=== PATIENT | male | born 1970 | race Caucasian/White ===

== ENCOUNTER 2022-04-12 18:56 | Emergency (ER) | payer OTHER, SELFPAY ==
[2022-04-12 19:00] VITALS: BP 169/98; PULSE 76; RESP 18; TEMP 36.8; O2SAT 98
--- NOTE | 2022-04-12 19:05 | ED.GENADUL_ITS ---
Discharge Plan Disposition Patient Disposition: HOME Condition: Improving Discharge Details Clinical Impression: Rash Primary Care Provider: [place],Local ED Provider: Sherri Abbott Home Meds and New Rx's Prescriptions: New prednisone 20 mg tablet See Rx Instructions .ROUTE .COMPLEX Qty: 18 0RF Rx Instructions: Take 3 tabs daily for 3 days, then 2 tabs daily for 3 days, then 1 tab daily for 3 days. cephalexin 500 mg capsule 500 mg PO QID 7 Days Qty: 28 0RF Discharge Instructions Instructions: Acute Rash (ED) Additional Instructions: Drink plenty of fluids and get plenty of rest. Alternate tylenol and motrin as needed and directed for pain. Keep the areas clean and dry. Cover with bandage if risk of injury or contamination. You are being sent home with a prescription for the steroid prednisone and the antibiotic Keflex to take as directed until finished. Follow-up with your primary care doctor in 1 week. Return to the emergency department with any worsening or new concerning symptoms . Discharge Data Discharge Date/Time-TO BE ENTERED AT DEPARTURE: 04/12/22 19:42 Discharge Physician: Sherri Abbott Medical Decision Making 51-year-old male presents with painful itchy rash to his bilateral upper extremities after a black fly bites of the past few weeks. Patient has patches of erythema, edema and vesicles with some areas of yellow crusting to his bilateral upper extremities. Appears consistent with poison debbie or poison oak but he denies any known exposure to this. He states he usually has a similar reaction to black fly bites. Discussed that the treatment for both would be oral steroids. As there is areas of yellow crusting with erythema, will also cover with antibiotics. He was given a dose of oral prednisone and Keflex here and given prescriptions for both. Advised him on the importance of proper wound care. Advised to follow up with the primary care doctor for re-evaluation. Usual and customary return precautions given prior to discharge. HPI General Mode of arrival: ambulatory . Date/Time Provider Initiated Documentation: 04/12/22 19:05 . Limitations to Documentation: no limitations . Information obtained by: patient . HPI Narrative: Patient is a 51-year-old male who presents with painful itchy rash to his bilateral upper extremities after recent black fly bites patient states his first last fight bite was in his right inner elbow a few weeks ago. He states he initially developed a red bump which is extremely itchy and then progressed to a yellow crust with surrounding redness and swelling. He states he was outside in the sun fishing and sustained a black fly bite to his right wrist and then developed an area of redness and swelling around it. He states since then he has received other botfly bites to his arms resulting in the same reaction. He denies any fever. He denies any known exposure to poison debbie or poison oak. He states he has been applying topical cream without relief. Related Data Home Medications Medication Instructions Recorded Confirmed cephalexin 500 mg capsule 500 mg PO QID 7 days #28 caps 04/12/22 prednisone 20 mg tablet See Rx Instructions .Route 04/12/22 .COMPLEX #18 tabs Previous Rx's Medication Instructions Recorded cephalexin 500 mg capsule 500 mg PO QID 7 days #28 caps 04/12/22 prednisone 20 mg tablet See Rx Instructions .Route 04/12/22 .COMPLEX #18 tabs General Stated Complaint: RashLesion GENIA: 4 Review of Systems All systems reviewed & are unremarkable except as noted in HPI and below Constitutional Constitutional: Denies chills, Denies excessive sweating, Denies fatigue, Denies fever(s), Denies weakness and Denies weight loss Eyes Eyes: Reports system reviewed and no additional complaints, except as documented and Denies blurry vision ENT Ears, Nose, Mouth, and Throat: Denies vertigo, Denies dizziness, Denies otalgia, Denies nasal congestion, Denies sore throat and Denies throat swelling Cardiovascular Cardiovascular: Denies chest pain, Denies syncope, Denies rapid heart rate and Denies dyspnea Respiratory Respiratory: Denies chest congestion, Denies cough, Denies pain on inspiration and Denies dyspnea Gastrointestinal Gastrointestinal: Denies abdominal pain, Denies diarrhea and Denies vomiting Genitourinary Genitourinary: Denies hematuria, Denies dysuria and Denies flank pain Musculoskeletal Musculoskeletal: Denies back pain and Denies joint swelling Integumentary/Breasts Skin/Breast: Reports lesions and Reports rash Neurologic Neurologic: Denies behavioral changes, Denies confusion, Denies vertigo, Denies dizziness, Denies syncope, Denies localized weakness and Denies weakness Psychiatric Psychiatric: Denies behavioral changes, Denies confusion and Denies depression Endocrine Endocrine: Denies excessive sweating and Denies fatigue Hematologic/Lymphatic Hematologic/Lymphatic: Denies easy bruising and Denies lymphadenopathy Allergic/Immunologic Allergic/Immunologic: Denies throat swelling PFSH All Active Problems (Updated 04/12/22 @ 19:39 by Sherri Abbott DO) Rash (Acute) Medical History (Updated 04/12/22 @ 19:39 by Sherri Abbott DO) HTN (hypertension) Hx of hyperlipidemia Surgical History (Updated 04/12/22 @ 19:39 by Sherri Abbott DO) History of carpal tunnel surgery of left wrist S/P trigger finger release Social History Smoking/Tobacco Use Status: Never Smoking risk assessment performed?: Yes Alcohol Intake: never Substance use type: does not use Do you feel safe at home: Yes Do you feel safe in your relationship?: Yes Exam Const General: cooperative and healthy appearing Orientation: alert, awake and oriented x3 HENMT Head: normal to inspection Ears: hearing grossly normal bilaterally, external ears normal and TM's normal bilaterally General nose exam: external nose normal Face and sinus: normal facial exam Mouth: oral mucosae normal Teeth and gingiva: dentition normal Throat: posterior oropharynx normal Eyes General: appearance normal, both eyes and all related structures Eyelids: eyelids normal Pupils: PERRL EOM: EOM intact bilaterally Neck Neck: normal visual inspection Lymphatic: no lymphadenopathy noted Chest Chest: normal inspection of the chest Resp Effort & Inspection: normal respiratory effort and able to speak in complete sentences Cardio Rate: regular rate Back/Spine/Pelvis Back: no CVA tenderness Skin Full body images: 1. 2 large 5 x 5 cm areas of erythema, edema, vesicles. Yellow crust noted within right AC area. 2. 2 large 5 x 5 cm areas of erythema, edema and vesicles noted. Neuro General: patient alert and patient awake Cognition: normal cognition Speech: speech normal Gait: normal gait Motor: muscle tone normal throughout Sensory Exam: no sensory deficits noted Extrem General: full ROM and capillary refill normal Psych Appearance: grossly normal Mental Status: mental status grossly normal Speech and Movement: speech and movement normal Affect: normal affect Thought Process: normal Course Vital Signs Vital signs: Vital Signs Temperature 98.2 F 04/12/22 19:00 Pulse 76 04/12/22 19:00 Respiratory Rate 18 04/12/22 19:00 Blood Pressure 169/98 H 04/12/22 19:00 Pulse Oximetry 98 04/12/22 19:00 Temperature 98.2 F 04/12/22 19:00 Temperature Source Oral 04/12/22 19:00 Pulse 76 04/12/22 19:00 Respiratory Rate 18 04/12/22 19:00 Blood Pressure 169/98 H 04/12/22 19:00 Blood Pressure Position Sitting 04/12/22 19:00 Pulse Oximetry 98 04/12/22 19:00 Oxygen Delivery Method Room Air 04/12/22 19:00 Oxygen Flow Rate 0 04/12/22 19:00
[2022-04-12] MEDS: predniSONE 20 MG TAB 60 MG PO (19:35)
[2022-04-12] MEDS: Cephalexin 500 MG CAP PO (19:35)
== END 2022-04-12 19:42 | disposition home or self-care (01) ==
PROVIDERS: Emergency Provider Physician Assistant
DX: R21 Rash and other nonspecific skin eruption (principal)
CPT/HCPCS: 99283; J7512